=== PATIENT | male | born 1990 | race Caucasian/White ===

== ENCOUNTER 2023-11-06 18:09 | Emergency (ER) | payer OTHER, SELFPAY ==
[2023-11-06 18:12] VITALS: BP 135/93; PULSE 82; RESP 18; TEMP 36.4; O2SAT 97; BMI 30.2
--- NOTE | 2023-11-06 19:38 | EX.ED.GENINJ ---
HPI History of Present Illness Chief Complaint: Head Injury Narrative Narrative: Chief complaint and HPI: Head injury. 33-year-old male presents for evaluation of head injury and laceration. Patient states prior to arrival he was mowing the lawn when a tree branch was hanging too low and he ran into the branch/tree. He denies LOC. He denies headache. Denies nausea or vomiting. Patient has a large laceration to the right parietal scalp. He denies blood thinner use. States his last tetanus was last year. Denies any neck pain or injury elsewhere. Review of systems: See HPI Medications: As listed on the chart Allergies: As listed on the chart PFSH: Per chart Vital signs: As listed on the chart. Reviewed. Physical exam: Gen: A&O x3, NAD but dried blood to the face Head: Normocephalic, 6 cm laceration to the right parietal scalp with minimal oozing Eyes: No sclera icterus, conjunctiva clear, PERRL, EOMI ENT: TMs clear BL, moist mucous membranes, no swelling/lacerations/blood in the mouth or the nares, No nasal septal hematoma, no facial tenderness, no raccoon eyes or warren sign Neck: Trachea midline, No JVD, Nontender CV: RRR, no murmurs, no chest wall TTP Resp: Lungs CTA BL, no w/r/c Musc: Full ROM, no deformity Neuro: Alert, oriented, grossly intact, sensation intact, GCS 15 Psych: Cooperative, appropriate mood and affect PFS PFS Allergy/AdvReac Type Severity Reaction Status Date / Time No Known Allergies Allergy Verified 11/06/23 18:11 Social History Smoking Status: Never smoker EXAM Physical Exam Const Vital Signs: 11/06/23 18:12 11/06/23 19:17 Temperature 97.5 F L Temperature Source Temporal Pulse Rate 82 Respiratory Rate 18 Respiratory Effort Normal Non-Labored Blood Pressure 135/93 H Blood Pressure Mean 107 Pulse Ox 97 Oxygen Delivery Method Room Air MDM MDM MDM Narrative Medical decision making narrative: 33-year-old male presents for evaluation of head injury/laceration after mowing the lawn. See physical exam findings. Patient up-to-date on tetanus. Differential diagnosis includes contusion and scalp laceration. No need for head CT per [place] CT head rule. No neck tenderness. Laceration repaired. Patient tolerated this well. Patient was given education on suture removal. Monitor for signs of infection. Patient stable to discharge home. Laceration Repair Indication: Laceration Location: 6 cm right parietal scalp laceration Consent: Risks, benefits, and alternatives discussed with patient and consent obtained Procedure: A time out was performed. The area was prepped and draped in the usual sterile fashion. Local anesthesia was achieved using 1% Lidocaine. The wound was copiously irrigated and cleaned. A running locking suture was placed using 4-0 Ethilon in an interrupted fashion. The estimated blood loss was minimal. Bacitracin was applied to the area. The patient tolerated the procedure well without complications. Foreign Material: None Debridement: None Follow-up: Anticipatory guidance, as well as standard post-procedure care, was explained. Return precautions are given. Follow-up visit set for suture removal and evaluation of the laceration. Impression: 1. Closed head injury 2. 6 cm scalp laceration, repaired Discharge Plan Triage Chief Complaint: Head Injury ED Provider: Sudhir Stephens Dx/Rx/DC Orders Clinical Impression: Scalp laceration Instructions: ED Laceration Scalp Stitches or [place] [facility] Provider: [facility] Referrals: [facility] [Primary Care Provider] - 1-2 Weeks Activity Restrictions/Additional Instructions: Sutures need to be removed in 7 to 14 days Print Language: French Disposition Disposition: Home, Self Care Discharge Date/Time: 11/06/23 20:23
== END 2023-11-06 20:23 | disposition home or self-care (01) ==
PROVIDERS: Emergency Provider Surgery; Visit Provider Surgery
DX: S01.01XA Laceration without foreign body of scalp, initial encounter (principal); W22.09XA Striking against other stationary object, initial encounter; Y93.89 Activity, other specified
CPT/HCPCS: 12002; 99282

== ENCOUNTER 2024-07-31 23:47 | Emergency (ER) | payer OTHER, SELFPAY ==
[2024-07-31 23:47] VITALS: BP 138/95; PULSE 57; RESP 16; TEMP 36.6; O2SAT 97; BMI 33.2
--- NOTE | 2024-08-01 00:12 | EX.ED.DYSGE1 ---
HPI History of Present Illness Chief Complaint: Back Informant: patient and spouse/S.O. Narrative Narrative: Patient is a 34-year-old male who reports a longstanding history of back issues. He states he herniated his L5 and S1 years ago. He states since that time typically once a year he will have a bout where he strains his low back with normal daily activity. He states that today he was bending down to bean picker a cord and as he stood up had pain across the low back. He reports that he has difficulty standing up or rotating as this makes pain worse. He denies any radiation of the pain down his legs. He denies any loss of bowel or bladder control or IV drug use. He states in the past when this has happened he is required a pain shot and muscle relaxer to help resolve the symptoms and secondary to this comes in for evaluation. [facility] Medical History (Updated 08/01/24 @ 00:[address] Dave Mueller, DO) Hypercholesteremia Hypertension Migraines Herniated disc Home Medications ?Medication ?Instructions ?Recorded ?Last Taken ?Type methocarbamol 500 mg tablet 1,000 mg (2 x 500 mg) PO 4X/DAY 08/01/24 Unknown Rx PRN Muscle pain/spasm #56 tabs methylprednisolone 4 mg tablets in See Rx Instructions PO .COMPLEX 08/01/24 Unknown Rx a dose pack (Medrol (Zachariah)) #21 tabs Allergy/AdvReac Type Severity Reaction Status Date / Time No Known Allergies Allergy Verified 07/31/24 23:48 Surgical History (Updated 07/31/24 @ 23:52 by Danny Melendez) [place] teeth extracted Hx of appendectomy Social History Smoking Status: Never smoker ROS ROS ED Constitutional Constitutional ED: Denies chills or fever(s) ENT ENT ED: Denies sore throat Cardiovascular Cardiovascular: Denies chest pain Respiratory/Chest Respiratory/Chest: Denies cough or dyspnea Gastrointestinal Gastrointestinal: Denies abdominal pain, diarrhea, nausea or vomiting Genitourinary Genitourinary ED: Denies dysuria or hematuria Musculoskeletal Musculoskeletal: Reports back pain Integumentary Denies rash Neurologic Neurologic: Denies headache(s), paresthesias or weakness Hematologic/Lymphatic Hematologic/Lymphatic: Denies easy bleeding or easy bruising EXAM Physical Exam Const Vital Signs: 07/31/24 23:47 Temperature 97.9 F Temperature Source Oral Pulse Rate 57 L Respiratory Rate 16 Blood Pressure 138/95 H Blood Pressure Mean 109 Pulse Ox 97 Oxygen Delivery Method Room Air Positive well nourished and well developed General Appearance ED: well developed; Negative for pallor HEENT HEENT Narrative: Normocephalic atraumatic Eyes PERRL and EOMs intact bilaterally General Eye ED: Negative for scleral icterus Neck supple Resp normal respiratory effort and clear to auscultation bilaterally Cardio regular rate and regular rhythm Back/Spine no CVA tenderness Back/Spine Narrative: No bony deformity or step-off of the thoracic or lumbar spine No midline pain on palpation There is bilateral paralumbar tension and spasm noted that worsens with motion. No saddle anesthesia. Negative straight leg raise. No clonus or Babinski. Patellar reflexes are plus 2 out of 4 bilaterally Extremity normal to inspection Neuro oriented x3, CN's II-XII intact bilaterally and no sensory deficits noted Sensorium / Orientation: alert Psych mental status grossly normal Skin no rashes or lesions noted and no wounds Skin Narrative: No overlying soft tissue changes to suggest trauma or infection General Skin Exam: Negative for jaundice or pallor MDM MDM MDM Narrative Medical decision making narrative: Patient arrived to the ER hypertensive but has a past medical history of this. He denied any recent trauma or excessive activity. He states that there has been no loss of bowel or bladder or IV drug use and therefore concern for cauda equina or epidural abscess is low. He denies dysuria or hematuria going against kidney stone or UTI/pyelonephritis. Physical exam shows no overlying soft tissue changes to suggest cellulitis or shingles. History and exam is consistent with lumbosacral strain. Therefore at this time I do not feel there is need for imaging or testing. Patient states in the past he has received Toradol and Norflex with symptom improvement therefore he will be given these and discharged home. History & Record Review Discussion w/independent historian: Patient and Significant other Discharge Plan Triage Chief Complaint: Back ED Provider: Dave Mueller Dx/Rx/DC Orders Clinical Impression: Acute myofascial strain of lumbosacral region, Hypertension, Hyperlipidemia Instructions: Understanding Lumbosacral Strain, ED Back Spasm, No Trauma, ED Back Sprain/Strain Prescriptions: New methylprednisolone [Medrol (Zachariah)] 4 mg tablets,dose pack See Rx Instructions .ROUTE .COMPLEX Qty: 21 0RF Rx Instructions: for 6 days methocarbamol 500 mg tablet 1,000 mg PO 4X/DAY PRN (Reason: Muscle pain/spasm) Qty: 56 0RF Primary Care Provider: [facility] Referrals[place] [facility] [Primary Care Provider] - Activity Restrictions/Additional Instructions: Your exam and history is consistent with a acute strain and spasm to your psoas muscle belly. Continue to stretch and heat the area to reduce pain speed healing. Continue with Tylenol and/or Motrin for pain control but add the muscle relaxer and steroid as directed. If symptoms worsen or you have any further concerns please return for repeat evaluation Print Language: Slovak Disposition Disposition: Home, Self Care
[2024-08-01] MEDS: Ketorolac 30 MG/ML Syringe IM (00:21)
[2024-08-01] MEDS: Orphenadrine 60 MG/2 ML Ampul IM (00:21)
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
[2024-08-01 00:43] VITALS: BP 117/73; PULSE 52; RESP 16; TEMP 36.6; O2SAT 97
== END 2024-08-01 00:45 | disposition home or self-care (01) ==
LOC: ED 08-01 00:22
PROVIDERS: Emergency Provider Emergency Medicine; Visit Provider Emergency Medicine
DX: S39.012A Strain of muscle, fascia and tendon of lower back, initial encounter (principal); E78.5 Hyperlipidemia, unspecified; I10 Essential (primary) hypertension; E78.00 Pure hypercholesterolemia, unspecified; X50.1XXA Overexertion from prolonged static or awkward postures, initial encounter
CPT/HCPCS: 96372; 99282

== ENCOUNTER 2024-11-29 02:15 | Emergency (ER) | payer OTHER, SELFPAY ==
[2024-11-29 02:18] VITALS: BP 140/79; PULSE 74; RESP 18; TEMP 36.9; O2SAT 96; BMI 33.5
--- NOTE | 2024-11-29 02:40 | CT_ITS ---
PROCEDURE: SOFT TISSUE NECK WITH CONTRAST 11/29/2024 REASON FOR EXAM: RIGHT SUBMANDIB PAIN/SWELLING, R EARACHE. TECHNIQUE: Procedure Code: CTNEW Modality: CT Procedure: SOFT TISSUE NECK WITH CONTRAST CONTRAST: OMNIPAQUE 350 VOLUME: 100 mL One or more dose reduction techniques were used (e.g., Automated exposure control, adjustment of the mA and/or kV according to patient size, use of iterative reconstruction technique). RADIATION DOSE SUMMARY: CTDlvol: 17.42 mGy DLP: 543 mGycm COMPARISON: None. FINDINGS: Mild fat thickening overlying right submandibular gland, probably inflammatory pathology. No obstructing stone or abscess formation is identified. Mildly prominent right submandibular lymph nodes with the largest measuring 1.2 cm, probably reactive. Normal bilateral parotid glands. Normal bilateral medical staff manager spaces. Normal bilateral parapharyngeal spaces. Normal bilateral carotid spaces. Normal left sublingual and submandibular glands. Normal left sublingual and submandibular spaces. Normal visualized nasopharynx. Normal retropharyngeal space. Normal perivertebral space. Normal visualized bilateral faucial tonsils. The visualized tongue, tongue base and oropharynx are normal. The remaining visualized cervical lymph nodes (levels I-) are within normal size limits, and maintain normal morphology. There is no demonstrated solid or cystic mass lesion. Normal epiglottis, bilateral vallecula and hypopharynx. The pre-epiglottic and paraglottic adipose spaces are normal. Normal visualized bilateral piriform sinuses, aryepiglottic folds, vocal cords, and arytenoid-cricoid articulations. Normal subglottic trachea. Normal bilateral lobes of the thyroid gland. Normal visualized pulmonary apices. Benign chronic mucus retention cyst in the right maxillary sinus measuring 2.3 cm. Normal remaining visualized paranasal sinuses. Normal visualized cervical spine. CT/Soft Tissue Neck WITH Contrast IMPRESSION: Mild fat thickening overlying right submandibular gland, probably inflammatory pathology. No obstructing stone or abscess formation is identified. Mildly prominent right submandibular lymph nodes with the largest measuring 1.2 cm, probably reactive. Reading [facility] [address]
--- NOTE | 2024-11-29 02:41 | EX.ED.DYSGE1 ---
HPI History of Present Illness Chief Complaint: Ear Problem Informant: patient and spouse/S.O. Narrative Narrative: Patient is a 34-year-old male presenting with worsening right-sided ear and jaw pain. - Pain began on 3-4 days ago, initially localized to the right ear and later radiating to the right jaw. - Describes pain as throbbing and sharp, similar to previous wisdom tooth pain; worsens with swallowing but no throat pain/swelling. - Denies toothache, hearing issues, or pain with palpation of ear. - No recent allergies or cold symptoms; denies recent URI symptoms. - Reports frequent sinus infections, but not ear infections. - Evaluated at urgent care on Sunday and diagnosed with a right ear infection; started on amoxicillin, has taken for 2 days. - Pain persists despite antibiotics; [place] provided temporary relief. - Denies pain worsening with eating. - Pain intensified while at work and during sleep, waking him up at night. - Remembers similar pain in [id number], diagnosed with mono at that time. - Spouse suspects sleep apnea. PFSH [facility] Medical History Hypercholesteremia Hypertension Migraines Herniated disc Home Medications ?Medication ?Instructions ?Recorded ?Last Taken ?Type amoxicillin 875 mg-potassium 875 mg PO Q12H #20 TABLETS 11/29/24 Unknown Rx clavulanate 125 mg tablet lisinopril 5 mg tablet 5 mg PO DAILY 11/29/24 Unknown History rosuvastatin 20 mg tablet (Crestor) 20 mg PO DAILY 11/29/24 Unknown History tramadol 50 mg tablet 50 mg PO Q6H PRN pain 3 days #12 11/29/24 Unknown Rx tabs Allergy/AdvReac Type Severity Reaction Status Date / Time No Known Allergies Allergy Verified 11/29/24 02:15 Surgical History [place] teeth extracted Hx of appendectomy Social History Smoking Status: Never smoker ROS ROS ED Constitutional Constitutional ED: Denies chills or fever(s) Eyes Eyes: Denies change in vision or diplopia ENT ENT ED: Reports ear pain right and other Details: right preauricular and submandibular pain ; Denies dental pain, ear discharge, hearing loss, rhinorrhea or sore throat Musculoskeletal Musculoskeletal: Denies back pain or neck pain Integumentary Denies abscess or rash Neurologic Neurologic: Denies headache(s), paresthesias or weakness EXAM Physical Exam Const Vital Signs: 11/29/24 02:18 Temperature 98.4 F Temperature Source Oral Pulse Rate 74 Respiratory Rate 18 Blood Pressure 140/79 H Blood Pressure Mean 99 Pulse Ox 96 Oxygen Delivery Method Room Air Positive well nourished and well developed General Appearance ED: well developed and NAD HEENT HEENT Narrative: Right ear canal and tympanic membrane normal, no tenderness to palpation of the pinna or tragus. throat normal, tonsils small and symmetric no trismus. No dental tenderness. No gingival abnormalities. There is no preauricular tenderness or parotid tenderness/swelling, nor discharge from Stensen's duct. There is significant tenderness in the right submandibular region, as well as some focal swelling there but no external erythema or skin abscess/tinnitus. The left EAC and TM are normal. Mastoids bilaterally nontender and normal-appearing without edema or erythema. No stridor no muffled voice. Speaking normally. Eyes PERRL and EOMs intact bilaterally Resp normal respiratory effort Extremity normal to inspection General Extremety ED: Negative for edema General Extremity: Negative for edema Neuro oriented x3, CN's II-XII intact bilaterally, no sensory deficits noted and gait normal Motor Exam: strength 5/5 throughout Psych mental status grossly normal Skin no rashes or lesions noted and no wounds MDM MDM MDM Narrative Medical decision making narrative: Assessment: The patient is a 34-year-old male presenting for right-sided ear, jaw, and upper neck pain that has worsened despite two days of amoxicillin begun after an urgent-care diagnosis of otitis media. Bedside otoscopic exam is normal, making failure of outpt treatment of otitis media less likely. Differential discussed includes reactive submandibular lymphadenopathy versus submandibular salivary gland infection, with the possibility of a salivary duct stone. CT neck with IV contrast shows reactive lymph nodes and inflammation of the fat pad overlying the submandibular gland without abscess or stone. Given these findings, submandibular sialoadenitis with associated lymphadenopathy is the most likely diagnosis. Plan: - Discontinued plain amoxicillin; prescribed upgraded antibiotic containing amoxicillin with beta-lactamase inhibitor (first-line for salivary gland infection). - Administered single IV dose of long-acting steroid for swelling and pain. - Provided prescription for oral pain medication as needed. - Discharged home; no ENT referral required because CT shows no abscess or obstructive stone. Diagnostics: - CT neck with IV contrast: reactive submandibular lymph nodes; inflamed fat pad overlying submandibular gland; no abscess; no salivary duct stone. Reevaluations: - Discussed CT results with patient; reviewed lack of abscess and outlined treatment modifications including antibiotic change, steroid, and optional pain prescription. Lab Data Attestation: I reviewed the patient's lab results. Labs: Laboratory Results - last 24 hr 11/29/24 11/29/24 11/29/24 02:50 02:50 03:00 WBC Cancelled 8.6 Corrected WBC Cancelled RBC Cancelled 5.35 Hgb Cancelled 15.2 Hct Cancelled 43.2 MCV Cancelled 80.7 MCH Cancelled 28.4 MCHC Cancelled 35.2 RDW Std Deviation Cancelled 35.5 RDW Coeff of Lisa Cancelled 12.2 Plt Count Cancelled 236 MPV Cancelled 10.6 Immature Gran % (Auto) Cancelled 0.200 Neut % (Auto) Cancelled 36.5 L Lymph % (Auto) Cancelled 42.3 H Dillon % (Auto) Cancelled 8.1 Eos % (Auto) Cancelled 12.2 H Baso % (Auto) Cancelled 0.7 Absolute Neuts (auto) Cancelled 3.1 Absolute Lymphs (auto) Cancelled 3.63 Total Counted Cancelled Neutrophils % (Manual) Cancelled Band Neutrophils % Cancelled Lymphocytes % (Manual) Cancelled Monocytes % (Manual) Cancelled Eosinophils % (Manual) Cancelled Basophils % (Manual) Cancelled Metamyelocytes % Cancelled Myelocytes % Cancelled Promyelocytes % Cancelled Blast Cells % Cancelled Plasma Cell % (Manual) Cancelled Other Cells % Cancelled Nucleated RBC % Cancelled 0 Nucleated RBCs/100 WBC Cancelled Differential Comment Cancelled Diff Path Review Cancelled Hypersegmented Neuts Cancelled Atypical Lymphocytes Cancelled Reactive Lymphocytes Cancelled Smudge Cells Cancelled Toxic Granulation Cancelled Toxic Vacuolation Cancelled Dohle Bodies Cancelled Sri Rods Cancelled Platelet Estimate Cancelled Plt Morphology Comment Cancelled RBC Morphology Cancelled Cancelled Polychromasia Cancelled Hypochromasia Cancelled Basophilic Stippling Cancelled Anisocytosis Cancelled Microcytosis Cancelled Macrocytosis Cancelled Spherocytes Cancelled Sickle Cells Cancelled Target Cells Cancelled Tear Drop Cells Cancelled Ovalocytes Cancelled Stomatocytes Cancelled Sawyer-Peconic Bodies Cancelled [place] Cells Cancelled Bite Cells Cancelled Crenated Cell Cancelled Acanthocytes (Spur) Cancelled Rouleaux Cancelled Schistocytes Cancelled Sodium Cancelled Potassium Cancelled Chloride Cancelled Carbon Dioxide Cancelled Anion Gap Cancelled BUN Cancelled Creatinine Cancelled Estim Creat Clear Calc Cancelled Est GFR (MDRD) Non-Af Cancelled BUN/Creatinine Ratio Cancelled Glucose Cancelled Calcium Cancelled 11/29/24 03:55 WBC Corrected WBC RBC Hgb Hct MCV MCH MCHC RDW Std Deviation RDW Coeff of Lisa Plt Count MPV Immature Gran % (Auto) Neut % (Auto) Lymph % (Auto) Dillon % (Auto) Eos % (Auto) Baso % (Auto) Absolute Neuts (auto) Absolute Lymphs (auto) Total Counted Neutrophils % (Manual) Band Neutrophils % Lymphocytes % (Manual) Monocytes % (Manual) Eosinophils % (Manual) Basophils % (Manual) Metamyelocytes % Myelocytes % Promyelocytes % Blast Cells % Plasma Cell % (Manual) Other Cells % Nucleated RBC % Nucleated RBCs/100 WBC Differential Comment Diff Path Review Hypersegmented Neuts Atypical Lymphocytes Reactive Lymphocytes Smudge Cells Toxic Granulation Toxic Vacuolation Dohle Bodies Sri Rods Platelet Estimate Plt Morphology Comment RBC Morphology Polychromasia Hypochromasia Basophilic Stippling Anisocytosis Microcytosis Macrocytosis Spherocytes Sickle Cells Target Cells Tear Drop Cells Ovalocytes Stomatocytes Sawyer-Peconic Bodies [place] Cells Bite Cells Crenated Cell Acanthocytes (Spur) Rouleaux Schistocytes Sodium 140 Potassium 4.0 Chloride 105 Carbon Dioxide 25.0 Anion Gap 10 BUN 12 Creatinine 0.88 Estim Creat Clear Calc 140.03 Est GFR (MDRD) Non-Af 116 BUN/Creatinine Ratio 13.5 Glucose 127 H Calcium 8.9 Radiography Diagnostic Testing: Clinical Impression(s) from Imaging Studies Soft Tissue Neck CT 11/29/24 02:40 IMPRESSION: Mild fat thickening overlying right submandibular gland, probably inflammatory pathology. No obstructing stone or abscess formation is identified. Mildly prominent right submandibular lymph nodes with the largest measuring 1.2 cm, probably reactive. Reading Location: [id number] Imaging: - CT scan of the neck with IV contrast: Reactive lymph nodes, inflamed fat pad over the salivary gland, no abscess or stone identified. I reviewed the images and report which I agree with Discharge Plan Triage Chief Complaint: Ear Problem ED Provider: Heri Colby Dx/Rx/DC Orders Clinical Impression: Submandibular sialoadenitis, Submandibular lymphadenopathy Instructions: ED Salivary Gland Infection Prescriptions: New amoxicillin-pot clavulanate 875-125 mg tablet 875 mg PO Q12H Qty: 20 0RF tramadol 50 mg tablet 50 mg PO Q6H PRN (Reason: pain) 3 Days Qty: 12 0RF Continued lisinopril 5 mg tablet 5 mg PO DAILY rosuvastatin [Crestor] 20 mg tablet 20 mg PO DAILY Discontinued amoxicillin 875 mg tablet 875 mg PO BID [facility] Provider[facility] Referrals: [facility] [Primary Care Provider, None] - 3-5 Days if not improving Activity Restrictions/Additional Instructions: - Stop your current amoxicillin and begin the new antibiotic (amoxicillin-clavulanate) as prescribed; 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 - Fill and use the prescribed pain medication as needed for comfort. - You received a single dose of IV steroid during your visit to help reduce swelling and pain. Print Language: Croatian Disposition Disposition: Home, Self Care
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
[2024-11-29 03:07] LABS: Hematocrit 43.2 % (40-54); Hemoglobin 15.2 g/dL (13.0-16.5); Immature Granulocytes Count 0.020 X10^3/uL (0.0-0.0); Mean Corp Hgb Conc 35.2 g/dL (32-36); Mean Corpuscular Volume 80.7 fL (80-94); Mean Platelet Vol. 10.6 fl (6.2-12.0); NRBC Flagged by Analyzer 0 % (0-5); Platelet Count 236 K/mm3 (150-450); RBC Distribution Width CV 12.2 % (11.6-14.6); RBC Distribution Width SD 35.5 fl (35.1-43.9); Red Blood Count 5.35 M/mm3 (4.6-6.2); White Blood Count 8.6 K/mm3 (4.4-11.0)
[2024-11-29 04:26] LABS: Anion Gap 10 (5-15); BUN 12 mg/dL (4-19); BUN/Creat Ratio 13.5 RATIO (10-20); Calcium,Total 8.9 mg/dL (7.6-11.0); Carbon Dioxide 25.0 mmol/L (21.0-32.0); Chloride 105 mmol/L (98-108); Estimated Creatinine Clearance 140.03 ml/min (50-250); Glucose 127 mg/dL (70-99); Potassium 4.0 mmol/L (3.3-5.1)
[2024-11-29 05:43] VITALS: BP 156/56; PULSE 56; RESP 16; TEMP 37.1; O2SAT 98
== END 2024-11-29 05:44 | disposition home or self-care (01) ==
PROVIDERS: Emergency Provider Emergency Medicine; Visit Provider Emergency Medicine
DX: H92.01 Otalgia, right ear (principal); K11.20 Sialoadenitis, unspecified; R68.84 Jaw pain; E78.00 Pure hypercholesterolemia, unspecified; I10 Essential (primary) hypertension; R59.0 Localized enlarged lymph nodes; Z79.899 Other long term (current) drug therapy; Z90.49 Acquired absence of other specified parts of digestive tract
CPT/HCPCS: 70491; 80048; 85025; 96374; 99284; Q9967; A4216